=== PATIENT | male | born 1965 | race Caucasian/White ===

== ENCOUNTER 2020-12-23 10:12 | Emergency (ER) | payer MEDICARE ==
[2020-12-23 11:13] LABS: #Basophils 0.1 thou/uL (0.0-0.2); #Eosinphils 0.2 thou/uL (0.0-0.7); #Lymphocytes 2.5 thou/uL (1.20-3.40); #Monocytes 0.8 thou/uL (0.11-0.59); #Neutrophils 5.7 thou/uL (1.40-6.50); %Basophils 1.4 % (0.0-1.0); %Eosinophils 1.6 % (0.0-10.0); %Lymphocytes 26.8 % (21.0-51.0); %Monocytes 8.8 % (0.0-10.0); %Neutrophils 61.4 % (42.0-75.0); ALT (SGPT) 20 U/L (8-55); AST (SGOT) 23 U/L (5-34); Acetaminophen Less than 6.0 mcg/mL (10.0-30.0); Albumin 3.5 g/dL (3.5-5.0); Alcohol Less than 10 mg/dL (Less than 10); Alkaline Phosphatase 67 U/L (40-110); Anion Gap 14 mmol/L (10-20); BUN (Urea Nitrogen) 16 mg/dL (8.4-25.7); Bilirubin, Total 0.4 mg/dL (0.2-1.2); Calc. Creatinine Clearance 0 mL/min (70-130); Calcium 8.9 mg/dL (7.8-10.44); Carbon Dioxide 24 mmol/L (22-29); Chloride 108 mmol/L (98-107); Globulin 2.7 g/dL (2.4-3.5); Glucose 83 mg/dL (70-105); Hemoglobin 12.5 g/dL (14.0-18.0); Magnesium 1.6 mg/dL (1.6-2.6); Mean Corpuscular HGB CONC 32.4 g/dL (32.0-36.0); Mean Corpuscular Hemoglobin 30.6 pg (27.0-31.0); Mean Corpuscular Volume 94.3 fL (78.0-98.0); Mean Platelet Volume 8.5 fL (7.4-10.4); Platelet Count 198 thou/uL (130-400); Potassium 3.3 mmol/L (3.5-5.1); Protein, Total 6.2 g/dL (6.0-8.3); RBC Distribution Width 12.6 % (11.5-14.5); Red Blood Cell (RBC) Count 4.08 mill/uL (4.70-6.10); Salicylate Less than 8.0 mg/dL (15.0-30.0); Sodium 143 mmol/L (136-145); White Blood Cell (WBC) Count 9.3 thou/uL (4.8-10.8)
[2020-12-23] MEDS ORDERED: Acetaminophen 500 MG TAB ONE (11:17)
[2020-12-23] MEDS ORDERED: NS 0.9% w/ 20 MEQ KCL 1,000 ML ONE ×2 (11:28→13:11)
[2020-12-23] MEDS ORDERED: Potassium Chloride 10 MEQ TAB ONE (11:28)
[2020-12-23 12:06] LABS: Bilirubin Negative (Negative); Blood, Urine Negative (Negative); Clarity Clear (Clear); Glucose, Urine (Dipstick) Negative (Negative); Ketone, Urine Negative (Negative); Leukocyte Negative (Negative); Nitrite Negative (Negative); Protein, Urine (Dipstick) Negative (Neg-Trace); Specific Gravity, Urine 1.015 (1.005-1.030); Urobilinogen 0.2 mg/dL (Less than 2); pH, Urine 5.5 (5.0-9.0)
[2020-12-23 12:16] LABS: Amphetamine Not Detected (NotDetected); Barbiturates Screen Not Detected (NotDetected); Benzodiazepine Screen Not Detected (NotDetected); Cocaine Metabolite Screen Not Detected (NotDetected); Medtox Control Line Valid? VALID (VALID); Methadone Not Detected (NotDetected); Methamphetamine Not Detected (NotDetected); Opiate Screen Detected (NotDetected); Oxycodone Screen Not Detected (NotDetected); Phencyclidine (PCP) Not Detected (NotDetected); THC/Cannabinoid Screen Not Detected (NotDetected); Tricyclic Screen Not Detected (NotDetected)
[2020-12-23 13:44] LABS: Lactic Acid 1.4 mmol/L (0.5-2.2)
== END 2020-12-23 16:01 | disposition left against medical advice (07) ==
LOC: MADERS 10:12
DX: E87.6 Hypokalemia (principal); R55 Syncope and collapse; R56.9 Unspecified convulsions; I49.3 Ventricular premature depolarization; R94.31 Abnormal electrocardiogram [ECG] [EKG]; I10 Essential (primary) hypertension; I25.2 Old myocardial infarction; E11.9 Type 2 diabetes mellitus without complications; Z79.4 Long term (current) use of insulin; Z79.899 Other long term (current) drug therapy; Z79.891 Long term (current) use of opiate analgesic; Z79.82 Long term (current) use of aspirin
CPT/HCPCS: 36416; 80053; 80306; 80307; 81003; 83605; 83735; 83880; 84146; 84443; 84484; 85025; 96365; 96366; 36415-59; J3480